=== PATIENT | female | born 1990 | race Caucasian/White ===

== ENCOUNTER 2025-05-04 07:24 | Emergency (ER) | payer OTHER, BC | END 2025-05-04 08:53 | disposition home or self-care (01) | LOC: JP.ED 07:24 | DX: S16.1XXA Strain of muscle, fascia and tendon at neck level, initial encounter (principal); Z88.0 Allergy status to penicillin; Z79.899 Other long term (current) drug therapy; V89.2XXA Person injured in unspecified motor-vehicle accident, traffic, initial encounter | CPT/HCPCS: 99283 ==